=== PATIENT | male | born 1940 | race Caucasian/White ===

== ENCOUNTER 2022-10-06 19:49 | Emergency (ER) | payer OTHER ==
[~2022-10-06] VITALS: Ht 180.3 cm; Wt 90.7 kg
[2022-10-06 20:00] VITALS: BP_SYST 160
[2022-10-06] MEDS ORDERED: MORPHINE 4 MG INJ. 4 MG/ML VIAL IVP ONE (20:30)
[2022-10-06] MEDS ORDERED: NACL 0.9% 1,000 ML IV ONE (20:30)
[2022-10-06] MEDS ORDERED: KETOROLAC TROMETHAMINE 30 MG VIAL IVP ONE (20:30)
--- NOTE | 2022-10-06 20:30 | NUR ---
Leti carbone in ED - 10/07/22 at 0120 by SDEDCJM DARLIN William at bedside examining patient.
--- NOTE | 2022-10-06 20:48 | NUR ---
Patient to ER bed 3 to gown for evaluation. Side rails up. Report given to SKIP HERNANDEZ.
--- NOTE | 2022-10-06 20:50 | NUR ---
Note raf in EDM - 10/07/22 at 0120 by SDEDCJM Patient to bed 3 to [facility] for evaluation. Side rails up. Report given to SKIP HERNANDEZ.
--- NOTE | 2022-10-06 20:50 | NUR ---
ER at bedside examining patient.
--- NOTE | 2022-10-06 20:55 | NUR ---
PATIENT BROUGHT IN COMPLAINING OF LEFT SIDED FLANK PAIN X 2 DAYS SHOOTING DOWN LEG. PAIN 10/10 SHARP AND PULLING.
[2022-10-06 21:29] LABS: BASOPHILS # (AUTO) 0.1 K/uL (0.0-0.2); BASOPHILS % (AUTO) 0.7 % (0.0-2.0); EOSINOPHILS # (AUTO) 0.6 K/uL (0.0-0.4); EOSINOPHILS % (AUTO) 6.8 % (0.0-4.0); HEMATOCRIT 39.3 % (36-54); HEMOGLOBIN 13.1 g/dL (14.0-18.0); LYMPHOCYTES # (AUTO) 1.6 K/uL (1.0-5.5); LYMPHOCYTES % (AUTO) 18.6 % (20.5-51.5); MEAN CORPUSCULAR HEMOGLOBIN 29 pg (27-31); MEAN CORPUSCULAR HGB CONC 33 % (32-36); MEAN CORPUSCULAR VOLUME 88 fL (79.0-98.0); MONOCYTES % (AUTO) 10.9 % (1.7-9.3); NEUTROPHILS # (AUTO) 5.5 K/uL (1.8-7.7); PLATELET COUNT (AUTO) 314 K/uL (130-430); RED BLOOD CELL COUNT(AUTO) 4.47 MIL/uL (4.2-6.2); RED CELL DISTRIBUTION WIDTH 13.8 % (9.0-15.0); WHITE BLOOD COUNT (AUTO) 8.7 K/uL (4.8-10.8)
[2022-10-06 21:46] LABS: ALANINE AMINOTRANSFERASE 20 U/L (12-78); ALBUMIN 3.7 g/dL (3.4-4.8); ANION GAP 9 (5-15); ASPARTATE AMINOTRANSFERASE 15 U/L (10-37); CHLORIDE 105 mmol/L (98-107); CREATININE 1.32 mg/dL (0.55-1.30); GLUCOSE 108 mg/dL (70-99); TOTAL BILIRUBIN 0.5 mg/dL (0.0-1.0); UREA NITROGEN, BLOOD 29 mg/dL (8-21)
[2022-10-07 00:29] LABS: BILIRUBIN,URINE NEGATIVE (NEGATIVE); BLOOD, URINE 1+ (NEGATIVE); COLOR,URINE YELLOW (YELLOW); GLUCOSE,URINE NEGATIVE (NEGATIVE); KETONES,URINE NEGATIVE (NEGATIVE); LEUKOCYTE ESTERASE ,URINE NEGATIVE (NEGATIVE); NITRITE, URINE NEGATIVE (NEGATIVE); PROTEIN URINE 1+ (NEGATIVE); UROBILINOGEN,URINE 0.2 (0.2-1.0)
[2022-10-07 00:53] LABS: CLARITY/URINE HAZY (CLEAR)
[2022-10-07 01:10] LABS: BACTERIA,URINE None Seen /HPF (None Seen); WBC,URINE 0-3 /HPF (0-3)
[2022-10-07 01:20] VITALS: BP_SYST 162
--- NOTE | 2022-10-07 01:20 | NUR ---
Patient given written and verbal discharge instructions and verbalizes understanding. ER MD discussed with patient the results and treatment provided. Patient in stable condition. ID arm band removed. IV catheter removed intact and dressing applied, no active bleeding. Patient educated on pain management and to follow up with PMD. Pain Scale 0/10 Opportunity for questions provided and answered.
== END 2022-10-07 01:20 | disposition home or self-care (01) ==
LOC: SED 19:49
DX: S39.011A Strain of muscle, fascia and tendon of abdomen, initial encounter (principal); R31.9 Hematuria, unspecified; Z79.899 Other long term (current) drug therapy; X58.XXXA Exposure to other specified factors, initial encounter; Y93.89 Activity, other specified; Y92.89 Other specified places as the place of occurrence of the external cause; Y99.8 Other external cause status
CPT/HCPCS: 99285; 74176; 96374; 96361; 96375; 80053; 81000; 85025; 36415; 76376; J1885; J2270; J7030